=== PATIENT | male | born 1960 | race Caucasian/White ===

== ENCOUNTER 2021-10-24 09:36 | Inpatient (IN) | payer MEDICAID ==
[~2021-10-24] VITALS: Ht 182.9 cm; Wt 99.0 kg
[2021-10-24] MEDS ORDERED: COMBIGAN EYE DRO5 ML OPTH (12:44)
--- NOTE | 2021-10-24 13:09 | NUR ---
admission assessment completed. Pt is alert and oriented but aggitated. states he was unable to recieve care at [facility] and [facility] before making it to the hospital. spo2 = 94% on 15L NRB mask. respirations even and unlabored. lungs sound coarse in both bases. states he has a cough and constant persistent nasal congestion. plan of care established. Pt refused wearing cardiac catheterization technologist. IV remdesivir given and PRN medication for anxiety and cough at this time (see emar). Plan of care for established. Rt now in room to set up Vapotherm.
--- NOTE | 2021-10-24 14:30 | NUR ---
PT WAS INCONTIENT OF URINE. ASSISTED WITH TAKING OFF CLOTHING AND FRED CARE. PT NOW LAYING ON RIGHT SIDE ON VAPOTHERM AT 40L/65%. SPO2 = 98%. IV REMDESIVIR FINISHED, PT NOW SALING LOCKED. CALL LIGHT WITHIN REACH. PT DENIES FURTHER NEEDS AT THIS TIME.
--- NOTE | 2021-10-24 16:00 | NUR ---
ASSESSMENT COMPLETED. IV FLUIDS INFUSING. PT DIAPHORETIC BUT AFEBRILE. GOWN AND BED LINENS CHANGED. PT REMAINS ON VAPOTHERM AT 40L/65%. CALL LIGHT WITHIN REACH. WILL CONTINUE TO MONITOR.
--- NOTE | 2021-10-24 17:44 | NUR ---
PT ATTEMPTED TO STAND AT BEDSIDE TO VOID, UNABLE TO URINATE. NOW LAYING ON LEFT SIDE. VAPOTHERM FIO2 DECREASED TO 55% AT THIS TIME. PT'S SPO2 = 93-95%. GIVEN ORANGE JUICE. CALL LIGHT WITHIN REACH. NO FURTHER NEEDS AT THIS TIME.
--- NOTE | 2021-10-24 21:15 | NUR ---
PATIENT SLEEPING SOUNDLY. RR 20, EVEN AND NON-LABORED. NASAL CANULA ONLY IN ONE NARE, 40L 55% Fi02 VAPOTHERM. TITRATED TO 30L 55%. READJUSTED NASAL CANULA. PATIENT WOKE TO VOICE AND TOUCH. VS STABLE. IV FLUIDS PER ORDER, SITE WNL. LUNG SOUNDS ARE CLEAR, DIMINISHED IN THE BASES. PATIENT REPORTS GENERAL ACHES AND PAIN, PRN TYLENOL PROVIDED. PRN FOR COUGH AND SLEEP ALSO PROVIDED. PATIENT ENCOURAGED TO TURN FROM SIDE TO SIDE, CURRENTLY RESTING ON HIS BACK. PATIENT VERBALIZED UNDERSTANDING TO CALL FOR ASSISTANCE AND WHERE THE CALL LIGHTS WERE LOCATED. ALLOWED PATIENT TO REST, LIGHTS DIMMED.
--- NOTE | 2021-10-25 00:17 | NUR ---
PATIENT LAYING AWAKE IN BED. REPORTS THAT HE HAS TRIED TO VOID AND WAS UNABLE TO. PATIENT IS SLIGHTLY HUNGRY, OFFERED MULTIPLE ITEMS. PATIENT SETTLED ON OJ AND APPLE SAUCE. PATIENT IS TOLERATING 30L 55% Fi02 WELL. LUNG SOUNDS ARE DIMINSIHED THORUGHOUT, COARSE IN THE MARLI BASES. PATIENT IS DIAPHORETIC, DENIED FEELING FEVERISH, ORAL TEMP WNL. NEW GOWN AND LINENS PROVIDED. PATIENT STOOD TO EDGE OF THE BED WHILE BED WAS CHANGED, APPEARS STEADY. TIRED EASILY. TITRATED O2 TO 100% Fi02 WHILE STANDING, BACK TO 55% Fi02 WHEN IN BED. PATIENT DENIED ANY FURTHER NEEDS. STATES HE FEELS BETTER OVER ALL. CALL LIGHT IN REACH. LIGHTS DIMMED.
--- NOTE | 2021-10-25 02:46 | NUR ---
PATIENT TOLERATING VAPOTHERM WELL, CONTINUES TO REST MOSTLY ON HIS BACK WITH HOB ELEVATED. O2 SATS 95% ON 30L 55% Fi02, TITRATED TO 30L 45% Fi02. PATIENT WOKE EASILY AND WAS REPOSITIONING IN BED. DENIES ANY NEEDS AT THIS TIME. CALL LIGHT IN REACH.
--- NOTE | 2021-10-25 05:30 | NUR ---
MORNING LABS DRAWN. PATIENT IS IN [employer] THIS MORNING. REPORTS FEELING WELL. PATIENT TOLERATING VAPOTHERM 30L 45% Fi02. TITRATED TO 6L NC, PATIENT O2 SATS 98-99% AFTER SEVERAL MINS. TITRATED TO 4L NC. PATIENT'S LUNG SOUNDS ARE DIMINISHED AND COARSE IN THE BASES. MILD COUGH. VS STABLE. PATIENT VOIDED 800 MLS CONCENTRATED URINE. ENCOURAGED PO INTAKE. PATIENT IS MORE INTERESTED IN FOOD TODAY AND PROVIDED STAFF WITH BREAKFAST ORDER. PATIENT ALSO PROVIDED WITH MORE JUICE AND APPLE SAUCE.
--- NOTE | 2021-10-25 07:19 | NUR ---
Report recieved, care of patient assumed at this time.
--- NOTE | 2021-10-25 08:10 | NUR ---
Spoke with pt, he is staying in an RV at [facility]. States he has a home in [place]. States he not allowed to stay in his RV there, so now staying. States he needs to by a generator from [employer]. Volatile when discussing covid. Very Upset as he feels he contracted Covid from [place], states he is used to his own germs and has been staying in his RV. He they states he does go to the grocery store, [employer], the [employer]. He lives on [place] and denies financial issues. States he has 0 family, but did give first name of a friend in [place], Luz Maria [phone]. PCP is in [place]. He does not have a phone. Wants scrubs when he goes home as he does not want to wear his "infected clothing" on dc. Does not believe he will have immunity post covid. Plans to return RV on dc alone when he discharges. Attempted to discuss 02 and this was upseting, will wait and discuss on discharge if he needs oxygen. Hopefully pt will be weaned off by dc. Called and asked Maritza Gary, if she will put a note on pts chart requesting scrubs when dcd.
--- NOTE | 2021-10-25 08:26 | NUR ---
ASSESSMENT COMPLETED. PT ALERT AND ORIENTED. CRACKLES NOTED IN BILATERAL LUNG BASES. DYSPNEA ON EXERTION NOTED, SPO2 = 89% ON 4 L NC. COUGH IS DRY AND NON PRODUCTIVE. PT DENIES PAIN. PLAN OF CARE ESTABLISHED FOR THIS EVENING. CALL LIGHT WITHIN REACH. WILL CONTINUE TO MONITOR.
--- NOTE | 2021-10-25 09:00 | NUR ---
1PA TO CHAIR FOR BREAKFAST. PATIENT DESATS INTO LOW 80S WITH ACTIVITY, O2 INCREASED TO 6.5 WHILE UP IN CHAIR. CALL LIGHT IN EASY REACH
--- NOTE | 2021-10-25 09:48 | NUR ---
PT UP IN CHAIR FOR BREAKFAST AND MEDICATION ADMINISTRATION. SPO2 DECREASED INTO THE LOW 80S WITH EXERTION. PT NOW BACK IN BED IN LEFT SIDE LAYING POSITION. CURRENTLY ON VAPOTHERM AT 35L/ 50%FIO2. SPO2 =89-92%. DR PHAN IN ROOM TO ASSESS PT. PLAN OF CARE FOR DAY ESTABLISHED. CALL LIGHT AND BELONGINGS WITHIN REACH. WILL CONTINUE TO MONITOR.
--- NOTE | 2021-10-25 10:06 | NUR ---
Pt states he lives alone in a 1 story home with few steps. He uses a CPAP and a cane. He provides his own care. He has a niece in [place] and a sister in [place]. They will assist, but he states he doesn't see them often. He draws SSI and a pension from his late . He does not qualify for assist through [employer]. He states most of his food is from [employer]. He does not read labels and we discussed, food from a food bank is usually prepackaged and very high in salt. He does not want to speak with commercial title examiner for education. Phone numbers for contacts are incorrect and I will notify admitting with new phone number s. He also states he is on low income program for utilities. I offered to help him check if he qualifies for OHP and he states he did this a few months ago and he make to much money. Plans on dc to home when discharged.
--- NOTE | 2021-10-25 10:52 | NUR ---
PT RESTING ON LEFT SIDE ON VAPOTHERM, SPO2 =93%, DENIES NEEDS AT THIS TIME. WILL CONTINUE TO MONITOR.
--- NOTE | 2021-10-25 11:59 | NUR ---
ASSESSMENT COMPLETED. PT NOW LAYING ON BACK. DENIES PAIN AND STATES COUGH HAS IMPROVED SINCE PRN MEDICATION WAS GIVEN. PT ATTEMPTED TO VOID, ONLY ABLE TO VOID 50 CC AT THIS TIME. FLUIDS ENCOURAGED, LUNCH ORDERED/ CALL LIGHT WITHIN REACH. WILL CONTINUE TO MONITOR.
--- NOTE | 2021-10-25 14:00 | NUR ---
PT USED URINAL WHILE IN BED. DISCUSSED CHANGING POSITIONS. PTS SPO2 = 89-92 ON VAPOTHERM AT CURRENT SETTINGS. PT AGREEABLE TO LAYING ON SIDE. CALL LIGHT WITHIN REACH. WILL CONTINUE TO MONITOR.
--- NOTE | 2021-10-25 14:00 | NUR ---
PATIENT RECIEVED PHONE CALL, THIS CARDIAC NURSE IN TO ASSIST HIM WITH ANSWERING. 600ML OF URINE IN URINAL. PATIENT ALSO SET UP FOR BRUSHING HIS TEETH AFTER LUNCH.
--- NOTE | 2021-10-25 14:04 | NUR ---
DUE TO PRECAUTIONS, UNABLE TO VISIT PT IN PERSON. WILL FOLLOW NEEDED
--- NOTE | 2021-10-25 15:40 | NUR ---
ASSESSMENT COMPLETED. PT STATES "I FEEL KIND OF SWEATY BUT I DON'T WANT TO TAKE ANY MEDICINE. I WILL BE FINE" PT IS AFEBRILE BUT IS MILDY DIAPORHETIC. ASSESSMENT OTHERWISE UNCHANGED. CALL LIGHT WITHIN REACH. WILL CONTINUE TO MONITOR.
--- NOTE | 2021-10-25 19:30 | NUR ---
SHIFT REPORT RECEIVED. PATIENT RESTING IN BED. VAPOTHERM IN PLACE, O2 SATS 93%. CALL LIGHT IN REACH.
--- NOTE | 2021-10-25 21:00 | NUR ---
PATIENT IS NOT WILLING TO WEAR VAPOTHERM AT THIS TIME. REPORTED PAIN AND ANXIETY FROM THE LOUD NOISE TO RT WHICH WAS THEN PASSED ONTO THIS RN. DISCUSSED O2 THERAOY WITH PATIENT WHO VERBALIZED UNDERSTANDING BUT IS ADDAMENT ABOUT TAKING A BREAK FROM VAPOTHERM. PATIENT PLACED ON 15L HIGH FLOW NC AND THEN 15L NON-REBREATHER TO RECOVER FROM HAVING O2 OFF FOR 2-3MINS AND EXCESSIVE TALKING. ENCOURAGED PATIENT TO TAKE IT EASY AND RECOVER. PATIENT ABLE TO RECOVER FULLY AFTER ABOUT 10 MINS. LUNG SOUNDS ARE CLEAR IN THE UPPERS, FINE CRACKLES IN MARLI BASES. PATIENT HAS DRY NON-PRODUCTIVE COUGH. DENIED PAIN. ABD IS MILDLY DISTENDED, PATIENT REPORTS FEELING HE MIGHT NEED TO HAVE A BM TONIGHT AT SOME POINT. URNAL EMPTIED, URINE IS DARK LY IN COLOR. VS STABLE. IV SITE FLUSHED, WNL. DISCUSSED PRONING WITH PATIENT, WHO REPORTS HE HAS BEEN DOING THAT REGULARLY AND HIS HIPS HURT WHILE HE IS ON HIS SIDE BUT IS AGREEABLE TO IT AFTER A BREAK ON HIS BACK FOR A WHILE.
--- NOTE | 2021-10-25 21:30 | NUR ---
PATIENT'S O2 SATS 93% WITH NON-REBREATHER AND HIGH FLOW NC AT 15L. NON-REBREATHER REMOVED. RR 22. PATIENT'S O2 SATS 89-91%. ENOCURAGED PATIENT TO PRONE AND REST.
--- NOTE | 2021-10-26 00:15 | NUR ---
PATIENT APPEARS TO BE SLEEPING WITH HOB SLIGHTLY ELEVATED AND ON HIS BACK. RR 18. O2 SAT 92% ON 15L HIGH FLOW.
--- NOTE | 2021-10-26 05:30 | NUR ---
LAB IN FOR MORNING DRAW. PATIENT TOLERATING HIGH FLOW NC AT 15L. DENIES ANY NEEDS. CALL LIGHT IN REACH.
--- NOTE | 2021-10-26 07:50 | NUR ---
PATIENT HAD LRG AMOUNT OF URINE OUTPUT MIXED WITH STOOL IN BSC. PATIENT SELF TRANSFERRED HIMSELF TO BSC AND CALLED FOR ASSISTANCE WHEN RETURNED TO BED. NC OUT OF NOSTRILS, O2 SATS IN MID 70S. PATIENT NOW ONE 15L HF AND NON- REBREATHER 15L. RECOVERED WELL HOWEVER DESATS WHEN SPEAKING. ENCOURAGED TO NOT SPEAK AND FOCUS ON BREATHING. BREAKFAST ORDERED. CALL LIGHT CLIPPED TO BED SHEET AND IN EASY REACH.
--- NOTE | 2021-10-26 08:00 | NUR ---
Spoke with RN for update. Pt required high flow 02 during the night. NO plan for dc today.
--- NOTE | 2021-10-26 08:03 | NUR ---
ASSESSMENT COMPLETED. PT GOT UP UNASSISTED, TOOK OFF OXYGEN AND AMUBLATED TO THE BATHROOM TO HAVE A BOWEL MOVEMENT. WHEN BACK IN BED OXYGEN SATURATIONS IN THE LOW 80S. NOW ON NON REBREATHER MASK AT 15L/ HIGH FLOW NASAL CANNULA AT 15l, LAYING ON RIGHT SIDE. SPO2 INCREASED UP TO THE MID 90S AT THIS TIME. PT ANXIOUS, GIVEN PRN VISITRAL. PLAN OF CARE FOR DAY ESTABLISHED, CALL LIGHT WITHIN REACH. WILL CONTINUE TO MONITOR.
--- NOTE | 2021-10-26 08:37 | NUR ---
1PA TO CHAIR FOR BREAKFAST. 15LHF/NC IN PLACE. SATS MID-HIGH 80S HWILE EATING. PATIENT ENCOURAGED TO SPIT OUT PHLEM HE COUGHS IT UP AND EAT SLOWLY. CALL LIGHT IN REACH, LINENS CHANGED. NO OTHER NEEDS AT THIS TIME
--- NOTE | 2021-10-26 09:04 | NUR ---
REMDESIVIR INFUSING. PLAN ESTABLISHED TO ASSIST PATIENT WITH PRONING AFTER INFUSION IS COMPLETE.
--- NOTE | 2021-10-26 10:02 | NUR ---
PT NOW LAYING IN PRONE POSITION ON 15 L ON HIGH FLOW NASAL CANNULA. SPO2 =96%. CALL LIGHT WITHIN REACH. WILL CONTINUE TO MONITOR.
--- NOTE | 2021-10-26 11:23 | NUR ---
ASSESSMENT COMPLETED AT THIS TIME. PT REMAINS ON 15 L ON HIGH FLOW NC, SPO2 89-92%. DENIES PAIN OR DISCOMFORT. PT UP IN CHAIR FOR LUNCH, CALL LIGHT WITHIN REACH. WILL CONTINUE TO MONITOR.
--- NOTE | 2021-10-26 13:00 | NUR ---
PT VOIDED 450 MLS OF LY COLORED URINE. NOW BACK IN BED. SPO2 = 93%. CALL LIGHT WITHN REACH. DENIES FURTHER NEEDS AT THIS TIME.
--- NOTE | 2021-10-26 16:51 | NUR ---
ASSESSMENT REMAINS UNCHANGED. PT LAYING IN BED ON BACK WATCHING TELEVISION. PT UNWILLING TO PRONE OR SIDE LAY AT THIS TIME STATING "i WAS LAYING ON MY SIDE WHEN YOU WERE NOT PAYING ATTENTION" CALL LIGHT AND PERSONAL BELONGINGS WITHIN REACH. NO FUTHER NEEDS AT THIS TIME.
--- NOTE | 2021-10-26 17:46 | NUR ---
PT ATE MOST OF DINNER. NOW LAYING IN BED ON LEFT SIDE, CALL LIGHT WITHIN CARLITOS. DENIES FURTHER NEEDS AT THIS TIME.
--- NOTE | 2021-10-26 19:48 | NUR ---
PT IS ALERT AND ORIENTED X4. OXYGEN SATS DECREASED TO 85% ON 15L HFNC WHILE TALKING. DISCUSSED THE IMPORTANCE OF PRONE POSITION TO IMPROVE RESPIRATORY STATUS. PT VERBALIZES UNDERSTANDING AND ADAMANTLY DECLINES TO PRONE BUT STATES HE WILL LAY ON HIS SIDES. PT STATES THIS IS BECAUSE OF A HERNIA THAT RESTRICTS HIS ABILITY TO PRONE. RN OFFERED ASSISTANCE WITH PILLOW SUPPORT TO ALLEVIATE ABDOMINAL DISCOMFORT, AGAIN PT DECLINES PRONING AND STATE HE WILL "TRY TOMORROW". PRN TESSALON PEARLS AND ROBITUSSIN ADMINISTERED. WILL CONTINUE TO ENCOURAGE PRONING.
--- NOTE | 2021-10-26 22:12 | NUR ---
PT O2 SATS DECREASED TO 75%. PT FOUND TO HAVE TAKEN HIMSELF TO BATHROOM AND STATES THAT HE REMOVED OXYGYN. PT STATES HE DID NOT WANT TO USE COMMODE AND DID NOT WANT TO WAIT FOR HELP. PT IS VERY UPSET ABOUT POLITICAL ISSUES SURROUNDING COVID AND HIS CURRENT ILLNESS. RN ALLOWED PT TO EXPRESS HIS FRUSTRATIONS AND REINFORCED THE NEED TO NOT REMOVE OXYGEN AND USE BSC. RN EDUCATED ABOUT SEVERITY OF OXYGYN LEVELS AND THAT EVEN THOUGH HE DID NOT FEEL "BAD" HIS BODY IS NOT TOLERATING THE INCREASE IN ACTIVITY. PT DESIRES MORE PRIVACY WHEN USING BSC AND RN MADE ENVIROMENTAL CHANGES TO IMPROVE PRIVACY WITH TOILETING. PT DECLINES PRN ANXIETY MEDICATIONS AND WAS PLACED ON 15L NRB IN ADDITION TO 15L HFNC. PT REQUIRED GREATER ANTONIO 15 MINUTES TO RECOVER O2 >88%.
--- NOTE | 2021-10-27 01:30 | NUR ---
PT SLEEPING WITH O2 SATS MAINTAINED AT 85%. INSRUCTED PT TO LAY ON HIS SIDE AND O2 SATS IMPROVED TO 90-91%. WILL CONTNIUE TO ENCOURAGE FREQUENT TURNING AND PRONING.
--- NOTE | 2021-10-27 05:27 | NUR ---
PT UP TO SIDE OF BED TO VOID. O2 DOWN TO 81% AND 15L NRB PLACED IN ADDITION TO 15L HFNC. PT TAKES 5-10 MINUTES TO RECOVER AFTER EACH INCIDENT OF DESATURATION. PT EXPRESSES FRUSTRATION REGARDING OXYGEN NOISE, DECLINES EAR PLUGS. PT CONTNIUES TO DECLINE PRONE OR TO REMAIN SIDE LYING. PT DECLINES USE OF VAPOTHERM AT THIS TIME. PT HAS BEEN EDUCATED ON RISK OF HARM R/T HYPOXIA, VERBALIZES UNDERSTANDING. WILL CONTINUE TO REINFORCE EDUCATION AND INTERVENTIONS.
--- NOTE | 2021-10-27 06:47 | NUR ---
PT UP TO BSC. NOW SITTING UP IN CHAIR. CONTINUES TO REQUIRE APPROXIMATELY 10 MINUTES WITH NRB AND HFNC BOTH AT 15L TO RECOVER DESATURATION TO THE MID 70S DURING EXERTION. PT DENIES FURTHER NEEDS AT THIS TIME.
--- NOTE | 2021-10-27 07:28 | NUR ---
REPORT REC'D FROM ENVIRONMENTAL CONSERVATION OFFICER. PATIENT RESTING IN CHAIR AT THIS TIME. PT STATES HE IS DOING OKAY, AND THAT HE IS READY FOR BREAKFAST. PT WEARING NON REBREATHER ON TOP OF HIGH FLOW NASAL CANNULA. WILL ASSESS WHEN IN ROOM. WAITING FOR PATIENT'S BREAKFAST BEFORE GOING IN FOR MEDS/ASSESSMENT. SP02 IS CURRENTLY 92%, HR IN THE 70s.
--- NOTE | 2021-10-27 09:00 | NUR ---
IN PATIENT'S ROOM FOR ASSESSMENT AND LACQUER PIN PRESS OPERATOR. PT ALSO BROUGHT HIS BREAKFAST. LENGHTY CONVERSATIONS WITH PATIENT REGARDING HIS DIAGNOSIS, TREATMENTS, PLAN OF CARE, PRONING, ETC. PATIENT EXPRESSING FRUSTRATIONS OVER ENTIRE DIAGNOSIS, HOSPITALZATION, LACK OF CONTROL OVER THINGS, ETC. PATIENT APPRECIATIVE AND APOLOGETIC OF HIS BEHAVIORS, AND STATES HE APPRECIATES US HELPING HIM. PATIENT TIRED, WANTING TO GET BACK TO BED TO REST. DISCUSSED DIFFERENT METHODS OF PRONING. PATIENT TO BE GIVEN A BEDBATH ONCE BACK IN BED. REMDESEVIR INFUSING AT THIS TIME. PT TO BE SALINE LOCKED AFTER THAT. CONTINUE TO MONITOR.
--- NOTE | 2021-10-27 09:34 | NUR ---
PATIENT GIVEN BED BATH AND SHAMPOO CAP. PT NOW RESTING ON LEFT SIDE AND SP02 IS 91% ON 15 L HFNC. PATIENT STATES HE DIDN'T REST VERY WELL LAST EVENING AND IS WANTING TO REST NOW. PT ATE 80% OF HIS BREAKFAST. CALL LIGHT WITHIN REACH.
--- NOTE | 2021-10-27 10:05 | NUR ---
DR. SWANSON IN TO SEE PATIENT. PATIENT HAS BEEN RESTING ON LEFT SIDE AND SP02 HAS BEEN 91-97% ON 15L HFNC. WILL CONTINUE TO MONITOR.
--- NOTE | 2021-10-27 11:57 | NUR ---
PATIENT SITTING UPRIGHT IN BED FOR LUNCH. PATIENT REMAINS ON 15 L HFNC WITH NRB OVERTOP AT TIMES. PATIENT EATS LUNCH. PATIENT STATES HE IS BREATHING OVERALL SLIGHTLY BETTER THAN HE WAS WHEN HE CAME IN. DISCUSSED WITH PATIENT POTENTIALLY USING IPPB TO WHICH HE WAS OPEN TO. PT HAD BEEN RESTING WELL SINCE BREAKFAST. DENIES FURTHER NEEDS, BUT ASKS THIS RN TO PRAY FOR HIM.
--- NOTE | 2021-10-27 12:23 | NUR ---
REPORT RECIEVED FROM CCU BEA CAREY. CARE OF PATIENT ASSUMED AT THIS TIME. PT IN BED WATCHING TELEVISION. ON HIGH FLOW NC AT 15 L WITH NRB MASK ON THE TOP. SPO2 = 94%. CALL LIGHT WITHIN REACH. WILL CONTINUE TO MONITOR.
--- NOTE | 2021-10-27 14:14 | NUR ---
PT'S OXYGEN SATURAIOTNS AT 87%, PT LAYING FLAT ON BACK. REFUSES AT THIS TIME TO TURN LELE SIDE. CALL LIGHT WITHIN REACH. WILL CONTINUE TO MONITOR.
--- NOTE | 2021-10-27 16:21 | NUR ---
assessment completed. pt's respiratory rate is in the high 20's and pt is using accessory muscles to breath. pt denies feeling short of breath. spo2 =87% on high flow nasal cannula and nrb mask. Encouraged pt to prone and side lie. PT unwilling at this time. call light and personal belongings within reach. Will continue to educate pt on the importance of proning for respiratory care.
--- NOTE | 2021-10-27 17:20 | EKG ---
[facility] [address] [place], [place] [address] Signed Normal sinus rhythm Normal ECG No previous ECGs available Confirmed by NAOMY SWANSON DO ([id number]) on 10/27/2021 5:20:46 PM Electronically Signed By: NAOMY SWANSON DO 10/27/21 1720 PATIENT NAME: SHYANA MCCAULEY Electrocardiogram DATE OF : 56 PHYSICIAN: NAOMY SWANSON DO REPORT #: [id number] REPORT IS CONFIDENTIAL AND NOT TO BE RELEASED WITHOUT AUTHORIZATION
--- NOTE | 2021-10-27 23:11 | NUR ---
PT TO SIDE OF BED TO VOID. O2 SATS DECREASED TO LOW 80s AND PT 15L NRB WAS ADDED TO 15L HFNC. SATS REMAINED AT 86% AND PT WAS INSTRUCTED TO LAY ON HIS SIDE. O2 STS NOW MAINTAINING AT 90%. WILL CONTINUE TO MONITOR.
--- NOTE | 2021-10-28 04:34 | NUR ---
PT UP TO BSC INDEPENDENTLY. O2 SATS DECREASED TO MID 70S ON 15L HFNC. 15L NRB PLACED. RECOVERY TIME AFTER ACTIVITY IS IMPROVED TONIGHT FROM LAST NIGHT, O2 SATS INCREASED TO 90% IN LESS THAN 5 MINUTES.
--- NOTE | 2021-10-28 07:00 | NUR ---
PATIENT REPORT RECEIVED FROM BEA BRIDGES. PATIENT RESTING IN BED. PATIENT HAS HIGH FLOW OXYGEN ON AND NRB AT 15 LITERS. CALL LIGHT WITHIN REACH NO FUTHER NEEDS.
--- NOTE | 2021-10-28 08:00 | NUR ---
PATIENT ASSESSMENT COMPLETE. MEDICATIONS GIVEN ORDERED. PATIENT WORK OF BREATHING APPEARS TO BE LABORED. PATIENT EDUCATED ON THE IMPORTANCE OF SIDE LYING AND PRONING. PATIENT STATES, "I WILL DO WHAT I WANT" PATIENT IS ON 15 LITERS OF OXYGEN ON THE NRB AND HIGH FLOW OXYGEN. LUNGS ARE CLEAR IN THE UPPER LOBES AND DIMINISHED WITH FINE CRACKLES IN THE LOWER LOBES. HEART RATE IS 60-80 BPM. AFEBRILE. CMST INTACT. PLAN OF CARE UPDATED. CALL LIGHT WITHIN REACH NO FUTHER NEEDS.
--- NOTE | 2021-10-28 09:44 | NUR ---
PATIENT TO SIDE OF BED TO VOID. PATIENT SATURATIONS DECREASED TO 82%. PATIENT TAKING LONGER TO RECOVER. NRB AND HIGH FLOW AT 15 LITERS. PATIENT BACK TO BED AND OXYGEN SATURATIONS BETWEEN 87-90%. WORK OF BREATHING LABORED. CALL LIGHT WITHIN REACH NO FUTHER NEEDS.
--- NOTE | 2021-10-28 11:21 | NUR ---
PATIENT OXYGEN SATURATIONS ARE MAINTAINING 84-87%. EDUCATED PATIENT ON SIDE LYING AND PRONING. PATIENT STATES "I DO NOT WANT TO LAY ON MY SIDE BECAUSE WHEN I LAY ON MY SIDE IT WILL BE LUNCHTIME AND I WILL HAVE TO MOVE AGAIN." PATIENT ON 15 LITERS NRB AND HIGH FLOW.
--- NOTE | 2021-10-28 12:00 | NUR ---
PATIENT ASSESSMENT COMPLETE. PATIENT SAID THAT RT TREATMENT HELPED. LUNGS ARE CLEAR IN THE UPPER LOBES AND DIMINISHED IN THE BASES. OXYGEN SATURATIONS AND RR HAVE IMPROVED AFTER TREATMENT. HEART RATE 60-70 BPM. AFEBRILE. URINE IS YELLOW AND CLEAR. NO BM. BOWEL TONES ACTIVE. CALL LIGHT WITHIN REACH NO FUTHER NEEDS.
--- NOTE | 2021-10-28 14:00 | NUR ---
PATIENT RESTING IN BED. PATIENT VOIDED. PATIENT HAS BEEN MAINTAING OXYGEN SATURATIONS ABOVE 95% AFTER RT TREATMENT. BREATHING IS EQUAL AND UNLABORED. HIGHFLOW OXYGEN AND NRB AT 15 LITERS VIA NASAL CANUALA. CALL LIGHT WITHIN REACH NO FUTHER NEEDS.
--- NOTE | 2021-10-28 16:00 | NUR ---
PATIENT ASSESSMENT COMPLETE. ALERT AND ORIENTED X4. LUNG SOUNDS CLEAR IN THE UPPER LOBES AND DIMINISHED IN THE BASES. OXYGEN SATURATIONS AND RR ARE WNL. 90-95%. HEART RATE 90-80 BPM. URINE IS YELLOW AND CLEAR. NO BM. BOWEL TONES ACTIVE. PATIENT DENIES ANY PAIN. PLAN OF CARE UPDATED. CALL LIGHT WITHIN REACH NO FUTHER NEEDS.
--- NOTE | 2021-10-28 19:38 | NUR ---
PT'S O2 SATS DOWN TO 80-83% ON 15L NRB AND 15L HFNC 15 MINUTES AFTER USING BSC. PT IS TACH[place]NI[place] IN THE LOW 30S AND STATES MILD SOB. INSTRUCTED PT TO LAY ON HIS SIDE WHICH UPSET HIM AND HE EXPRESSED HIS ANGER REGARDING COVID IN GENERAL AND THAT IT IS "NOT MY FAULT I AM SICK". PT EXPRESSES FRUSTRATION AT NEED TO CONTINUALLY LAY ON HIS SIDE AND WEAR HIS OXYGEN. RN VALIDATED PT'S FEELINGS AND REINFORCED THAT DISPITE HIS ANGER AND FEELINGS HE IS SICK AND THESE INTERVENTIONS ARE NEEDED TO ASSIST TO PREVENT FUTHER DECLINE IN CONDITION AND TO IMPROVE HIS RESPIRATORY CONDITION. PT VERBALIZES UNDERSTANDING, DECLINES TO PRONE BUT IS WILLING TO LAY ON HIS SIDE. O2 SATS INCREASED TO 89% WITIN 5 MINUTES AND 95% WITHIN 20 MINUTES. WILL CONTINUE TO REINFORCE EDUCATION AND PROVIDE EMOTIONAL SUPPORT NEEDED.
--- NOTE | 2021-10-29 01:15 | NUR ---
SPO2 ALARMING, SATS RANGING 79%-85%. pt RECENTLY UP TO VOID AND IS BACK IN BED. 15L HIGH FLOW NASAL CANNULA ALREADY IN PLACE, pt EDUCATED TO TURN ON HIS SIDE, pt EXPRESSES VERBAL FRUSTRATION REGRARDING "BEEPING NOISES" AND DIFFICULTY SITUATING HIMSELF IN BED WITH HIS BLANKETS. ASSISTANCE PROVIDED, 15L NONREBREATHER MASK NOW IN PLACE IN ADDITION TO 15L HIGHFLOW NASAL CANNULA. SPO2 SLOWLY TRENDING TO NORMAL RANGE, NOW 88-89%. DIAMOND EXPERT JACOB AT RN STATION AND UPDATED. CALL LIGHT IN REACH.
--- NOTE | 2021-10-29 04:45 | NUR ---
PT MAINTAINING O2 BETWEEN 82-84%. DISCUSSED NEED FOR VAPOTHERM TREATMENT AND NEGATIVE EFFECTS OF CONTINUED LOW OXYGEN. PT DECLINES VAPOTHERM BUT IS WILLING TO LAY BACK ON HIS SIDE. PT STATES HE IS THINKING ABOUT PRONING BUT DECLINES TO AT THIS TIME. RN OFFERS TO ASSIST WITH PILLOW SUPPORT FOR COMFORT, PT AGAIN DECLINES. PT DID RETURN TO LEFT SIDE LAYING POSITION AND O2 SATS NOW MAINTAINING BEWTEEN 87-90%.
--- NOTE | 2021-10-29 07:39 | NUR ---
REPORT RECEIVED FROM BEA BRIDGES. PT REMAINS UPSET REGARDING HIS EYEDROPS WHICH ARE NOT AVAILABLE IN HOUSE AND IN HIS TRAILER BUT REFUSED TO LET SOMEONE GO GET. CALLED PHARMACY AGAIN AND [facility]INO IS LOOKING INTO IT. BREAKFAST IS ORDERED.
--- NOTE | 2021-10-29 08:00 | NUR ---
Spoke with Rn for update. Pt remains on high flow 02.
--- NOTE | 2021-10-29 08:52 | NUR ---
TEETH BRUSHED AND FACE/HANDS WASHED. WILL GIVE BEDBATH TODAY. PATIENT NOW PRONING WITH 15L NC IN PLACE, SATS 91%. CALL LIGHT IN EASY [place].
--- NOTE | 2021-10-29 10:37 | NUR ---
SPOKE WITH PT REGARDING PRONING AND SIDE LAYING. STATES HE CAN ONLY DO WHAT HE CAN. TOLD HIM WHEN HE FEELS ABLE ROLL TO SIDE AND LAY THERE FOR A WHILE. EXPLAINED THAT HE IS QUITE SICK AND NEEDS TO DO THESE THINGS. PT DOES NOT SEEM TO UNDERSTAND HE SEES HIS O2 READING IS 90 ATT.
--- NOTE | 2021-10-29 11:38 | NUR ---
ADJUSTED VAPOTHERM ON PT HE IS HAVING TROUBLE KEEPING IT IN HIS NARES. LAYING ON BACK
--- NOTE | 2021-10-29 13:10 | NUR ---
SBA FROM BED TO CHAIR FOR LUNCH. PATIENT STATES "SEE, I TOLD YOU GUYS I WOULD BE OK, GAMALIEL KEPT MY NUMBERS IN THE 90S FOR QUITE AWHILE"(REFERRING TO HIS O2 SATS) THIS REAL ESTATE OFFICE SUPERVISOR ENCOURAGED PATIENT TO CONTINUE WEARING THE O2 AND TRIED TO CALM PATIENT HE GETS EXCITED AND FRUSTRATED VERY EASILY WITH O2 TUBING, MONITORS AND CORDS CONNECTED TO HIM. PATIENT NOW UP IN CHAIR EATING LUNCH. CALL LIGHT AND PERSONAL ITEMS IN [facility]ASY REACH
--- NOTE | 2021-10-29 13:28 | NUR ---
PT UP TO CHAIR TO EAT LUNCH, CONTINUES TO WEAR VAPOTHERM. SATS 87%. ANXIOUS ABOUT EVERYTHING.
--- NOTE | 2021-10-29 14:33 | NUR ---
PT TURNED TO LEFT SIDE AND WARM BLACKETS GIVEN. PT REPORTS BEING COLD. PT YELLING AT RN AND REQUESTING PANTS, PANTS GIVEN. PT REPORTS FEELING BETTER AND EDUCATION GIVEN ON CHANGING POSITIONS IN BED. O2 SAT 93% WHEN LAYING DOWN IN BED.
--- NOTE | 2021-10-29 16:30 | NUR ---
PT IN BED ON HIS BACK WITH NON REBREATHER AND VAPOTHERM ON. SATS 92-95% PT CONFUSED ABOUT HIS OX USAGE. EXPLAINED HIS SATS ARE BETTER BECAUSE WE ARE GIVING HIM MORE OX. HE STATES HE DOESN'T THINK SO. LUNG SOUNDS REMAIN THE SAME.
--- NOTE | 2021-10-29 17:57 | NUR ---
PT CALLED AFTER HE TOOK OFF HIS VAPOTHERM. PT WAS UNDER THE MISSUNDERSTANDING THAT LEONIE MARTIN HAD TOLD HIM IF HE WORE THE VAPOTHERM FOR AWHILE HE WOULDN'T NEED TO WEAR O2 AFTER THAT. TRIED TO EXPLAIN THAT HE HAD TO WEAR HIS NASAL CANULA REGARDLESS HIS SATS WERE AT 74. HE THINKS HE IS BETTER. HE ALSO THINKS HE HAS GOTTEN SICKER SINCE HE HAS BEEN HERE AND HE DID NOT COME HERE TO GET SICKER. TRIED ONCE AGAIN TO EXPLAIN THAT WE ARE DOING EVERYTHING WE CAN TO ASSIST HIM IN GETTING BETTER. UNABLE TO GET THROUGH.
--- NOTE | 2021-10-29 19:30 | NUR ---
O2 SAT DROPPING, TO LOW 80'S pt HAS NASAL CANNULA ON AT 15L. pt REFUSED TO PLACE NON REBREATHER AT THIS TIME "I'M DOING FINE, I JUST NEED A WARM BLANKET" PROVIDED A WARM BLANKET. pt DROPPED TO LOW TO MID 70'S, AFTER MUCH DISCUSSION AND EDUCATION, pt PLACED NRB OVER NC. SATS INCREASED TO HIGH 80'S. EMPTIED YELLOW URINE FROM URINAL. pt SPEAKING IN FULL SENTENCES DENIED FEELING SOB, STATING "I'M JUST REALLY TIRED AND I NEED TO SLEEP" LIGHTS DIM FOR pt COMFORT. CALL LIGHT WITHIN REACH.
--- NOTE | 2021-10-29 21:08 | NUR ---
PT REPORTS THAT HE "FEELS BETTER". DOES FEEL MILDLY SOB. O2 SATS DOWN TO 83% WHILE TALKING. REINFORCED EDUCATION ON SYMPTOMS FELT VS. OXYGEN NEEDS AND BENEFITS OF PRONE POSITIONING. PT CONTINUES TO DECLINE TO PRONE, HOWEVER IS WILLING TO SIDE LAY. PT NEEDS FREQUENT REMINDERS TO KEEP NRB ON AND BECOMES DEFENSIVE WHEN INTERVENTION INSTRUCTIONS ARE GIVEN. EDUCATION REINFORCED REGARDING THE NEED TO PREVENT OXYGEN DESATURATION AND THE HARM R/T HYPOXIA. PT REFUSES EDUCATION AND STATES THAT HE IS DOING ALL THAT HE NEEDS TO DO, AGAIN STATING THE HE FEELS BETTER. REINFORCED EDUCATION IN MULTIPLE WAYS AND EXAMPLES. WILL CONTINUE TO REINFORCE EDUCATION AND MONITOR.
--- NOTE | 2021-10-29 22:41 | NUR ---
PT SLEEPING WITH 15L HFNC AND INTERMITTENT 15L NRB. O2 SATS 89-90% AT THIS TIME WITH PT LAYING ON BACK. WILL CONTINUE TO MONITOR.
--- NOTE | 2021-10-30 06:07 | NUR ---
PT HAS SLEPT THROUGH THE NIGHT, UP TO VOID X2. O2 SATS HAVE MAINTAINED 90-96% WHILE RESTING. PT HAS SLEPT ON ALTERNATING SIDES THROUGHOUT THE NIGHT. MINIMAL EPISODES OF DESATURATION IN THE LOW 80s, OCCURING DURING ACTIVITY. HR 65-80. WILL CONTINUE TO MONITOR.
--- NOTE | 2021-10-30 07:39 | NUR ---
REPORT RECIEVED FROM BEA BRIDGES. PT HAD A GOOD NIGHT AND EVEN LAYED ON HIS SIDE SEVERAL TIMES. SATS CURRENTLY 89 ON 15L HFNC.
--- NOTE | 2021-10-30 09:14 | NUR ---
PT LAYING ON LEFT SIDE SLEEPING.
--- NOTE | 2021-10-30 11:42 | NUR ---
PT LAYING ON BACK ON BED, REFUSING TO LAY ON SIDE "GAMALIEL ALREADY DONE THAT TODAY".
--- NOTE | 2021-10-30 12:30 | NUR ---
PT SLEEPING ON BACK IN BED. DECLINED TO LAY ON SIDE.
--- NOTE | 2021-10-30 14:00 | NUR ---
DR MAHER PT. STATES HE IS FEELING BETTER AND ORDERED LUNCH. STAYED IN BED FOR LUNCH WHICH IS NOT HIS NORM. STATES HE IS STILL PRETTY TIRED. AFEBRILE AND VS REMAIN STABLE WITH O2 SATS IN THE HIGH 80'S TO LOW 90'S
--- NOTE | 2021-10-30 17:45 | NUR ---
ORDERED PT DINNER. SITTING UP IN BED WITH HFNC ON. DENIES CONCERNS
--- NOTE | 2021-10-30 19:40 | NUR ---
PT O2 DOWN TO 81-83% ON HFNC AT 15L. INSTRUCTED PT TO PLACE NRB BACK ON. O2 SATS NOW 89-92%. WILL CONTINUE TO MONITOR.
--- NOTE | 2021-10-31 01:35 | NUR ---
PT SLEEPING AND MAINTAINING 02 SATS AT 88-92% WITH 15L HFNC AND 15LNRB. CURRENTLY LAYING SUPINE, BUT SIDE LAYS INDEPENDENTLY.
--- NOTE | 2021-10-31 05:40 | NUR ---
PT UP TO SIDE OF BED TO VOID. O2 SATS DOWN TO 77% ON 15L NRB AND 15L HFNC. INSTRUCTED PT TO LAY ON SIDE. PT CONTINUES TO DECLINE VAPOTHERM AND STATES "MAYBE LATER". PT RECOVERY TIME APPOXIMATELY 20 MINUTES. O2 NOW 88%
--- NOTE | 2021-10-31 07:42 | NUR ---
Report recieved. Care of patient assumed at this time. Pt up to bsc with supplemental o2 in place. spo2 = 70%, PUBLIC RELATIONS STUDIES DIRECTOR in rooom at this time to assist pt.
--- NOTE | 2021-10-31 08:00 | NUR ---
PATIENT UP TO BSC INDEPENDANTLY, PATIENT TOOK OXY MASK OFF FOR ACTIVITY, O2 SATS AT 70%. THIS LIFE SCIENCE RESEARCH ASSISTANT IN TO CHECK ON AND ENCOURAGE PATIENT TO SIT DOWN AND PUT OXY MASK ON. PATIENT STATED "I HAD TO POOP, AND I CAN ONLY DO ONE THING AT A TIME." O2 SATS NOW AT 68% AND PATIENT REMINDED OF THE DANGER OF SUCH LOW OXYGEN SATURATION. PATIENT STATES HE UNDERSTANDS AND AGAIN STATES" I CAN ONLY DO ONE THING AT A TIME." PATIENT NOW SITTING ON SIDE OF BED.
--- NOTE | 2021-10-31 08:00 | NUR ---
Pt. sleeping at my visit. Not awakened. Update from nurse, pt cont. with 15 L 02 and is not compliant.
--- NOTE | 2021-10-31 08:01 | NUR ---
PT UP TO BSC TO HAVE BOWEL MOVMENT. SPO2 DECREASED INTO THE HIGH 60S WITH ACTIVITY. PT NOW BACK IN BED IN LEFT SIDE LAYING POSITION WITH 15 L NRB/ 15L HIGH FLOW NASAL CANNULA IN PLACE. AFTER 10 MINUTES SPO2 = 86% MEDICATIONS ADIMINISTERED, ASSESSMENT COMPLETED. PLAN FOR PT TO STAY IN SIDE LAYING POSITION UNTIL BREAKFAST ESTABLISHED. CALL LIGHT WITHIN REACH. WILL CONTINUE TO MONITOR.
--- NOTE | 2021-10-31 08:33 | NUR ---
PT REMAINS IN SIDE LAYING POSITION ON LEFT SIDE. SPO2 NOW AT 90% ON 15 L NRB/ 15 L HIGH FLOW NASAL CANNULA. WILL CONTINUE TO MONITOR.
--- NOTE | 2021-10-31 10:35 | NUR ---
pt completed breakfast and removed vapotherm. Now proning in bed on 15 L NC. Plan of care established to stay in prone position for an hour. PT agreeable at this time. spo2 = 93%. Call light within reach. Will continue to monitor.
--- NOTE | 2021-10-31 11:07 | NUR ---
PT CONTINUE TO LAY IN PRONE POSITION ON 15 L HIGH FLOW NC. SPO2 = 93-95% CALL LIGHT WITHIN REACH. WILL CONTINUE TO MONITOR.
--- NOTE | 2021-10-31 11:39 | NUR ---
PT PRONED FOR AN HOUR, NOW SITTING UP IN BED. DISSCUSSED PLAN TO PRONE AGAIN IN THE AFTERNOON. PT AGREEABLE TO PLAN. ASSESSMENT UNCHANGED. LUNCH ORDERED. CALL LIGHT WITHIN REACH. WILL CONTINUE TO MONITOR.
--- NOTE | 2021-10-31 13:32 | NUR ---
PATIENT SITTING UP IN BED EATING LUNCH. VAPOTHERM IN PLACE. FRESH ICE WATER PROVIDED AND URINAL EMPTIED. CALL LIGHT IN EASY REACH
--- NOTE | 2021-10-31 14:27 | NUR ---
PT ON PRECAUTIONS WILL FOLLOW
--- NOTE | 2021-10-31 14:30 | NUR ---
PATIENT AWAKE IN BED, BED BATH COMPLETE, WHILE PATIENT IS STANDING AT SIDE OF BED. LINENS CHANGED AGAIN. PATIENT VERY APPRECIATIVE OF CARE HE'S RECEIVING FROM STAFF. PATIENT NOW SITTING IN BED, CALL LIGHT IN EASY REACH, FRESH ICE WATER PROVIDED.
--- NOTE | 2021-10-31 17:34 | NUR ---
PT OFF OF VAPOTHERM AND ON 15 L HIGH FLOW NC TO EAT. ASSISTED WITH POSITIONING. CALL LIGHT WITHIN REACH, DENIES FURTHER NEEDS AT THIS TIME.
--- NOTE | 2021-10-31 20:00 | NUR ---
PATIENT ASSESSMENT COMPLETE. MEDICATIONS GIVEN ORDERED. PATIENT IS ALERT AND ORIENTED X4. LUNG SOUNDS DIMINISHED. PATIENT REFUSED TO WEAR VAPOTHERM. EDUCATED ON THE BENEFITS OF WEARING IT. PATIENT ON 15 LITERS HIGH FLOW AND NRB. OXYGEN SATURATIONS ARE 88-92%. BREATHING IS EQUAL AND UNLABORED. HEART SOUNDS ARE WNL AND HEART RATE IS 60-80 BPM. URINE IS YELLOW AND CONCENTRATED. BM TODAY. BOWEL TONES ACTIVE. SKIN IS GROSSLY INTACT. CMST INTACT. PLAN OF CARE UPDATED. NO QUESTIONS AT THIS TIME. CALL LIGHT WITHIN REACH NO FUTHER NEEDS.
--- NOTE | 2021-10-31 22:00 | NUR ---
PATIENT RESTING IN BED. 15 LITER HIGH FLOW OXYGEN AND NRB. BREATHING EQUAL AND UNLABORED. OXYGEN SATURATIONS WNL. CALL LIGHT WITHIN REACH NO FUTHER NEEDS.
--- NOTE | 2021-11-01 00:02 | NUR ---
PATIENT ASSESSMENT COMPLETE. PATIENT RESTING IN BED. LUNG SOUND DIMINISHED THROUGHOUT. PATIENT WEARING NRB AND HIGH FLOW AT 15 LITERS. EDUCATED ON THE IMPORTANCE OF PRONING AND SIDE LYING. OXYGEN SATURATIONS BETWEEN 85-92%. RR WNL. HEART RATE 60-80 BPM. AFEBRILE. URINE YELLOW AND CONCENTRATED. BOWEL TONES ACTIVE. NO BM. NO QUESTIONS AT THIS TIME. CALL LIGHT WITHIN REACH NO FUTHER NEEDS.
--- NOTE | 2021-11-01 02:29 | NUR ---
PATIENT UP TO THE COMMODE WITHOUT CALLING FOR ASSISTANCE. PATIENT DE SAT DOWN TO 70%. EDUCATED ON PATIENT ABOUT USING NRB WHILE UP. PATIENT SAID "I WILL USE IT WHEN I WANT TOO." ASSISTED BACK TO BED AND APPLIED NRB. PATIENT TOOK LONG TIME TO RECOVER. PATIENT SATURATIONS BACK TO 88-92%. CALL LIGHT WITHIN REACH NO FUTHER NEEDS.
--- NOTE | 2021-11-01 04:00 | NUR ---
PATIENT ASLEEP AND SATURATIONS ARE BETWEEN 90-95%. BREATHING IS EQUAL AND UNLABORED. HIGH FLOW OXYGEN AND NRB AT 15 LITERS. CALL LIGHT WITHIN REACH NO FUTHER NEEDS.
--- NOTE | 2021-11-01 05:00 | NUR ---
PATIENT ASSESSMENT COMPLETE. PATIENT IS RESTING IN BED. HIGH FLOW AND NRB AT 15 LITERS. OXYGEN SATURATIONS AT 88-94%. RR WNL. HEART SOUNDS WNL. PATIENT DENIES SHORTNESS OF BREATH AND PAIN. CMST INTACT. AFEBRILE. URINE IS YELLOW AND CONCENTRATED. NO BM. BOWEL TONES ACTIVE. NO QUESTIONS AT THIS TIME. CALL LIGHT WITHIN REACH NO FUTHER NEEDS.
--- NOTE | 2021-11-01 08:00 | NUR ---
PT THIS MORNING IS RELUCTANT TO PRONE ON HIS ABDOMEN. PT WAS SWITCHED TO VAPOTHERM 40L/ 100% DUE TO LOW O2 SATS IN THE LOWER 80'S. O2 SATS CURRENTLY IN THE MID 80'S ON VAPOTHERM. ALL LOBES ARE CLEAR BUT DIMINISHED. PT DENIES SOB EVEN THOUGH HIS RR IS AROUND 30. ABD SOUNDS PRESENT, NO PERIPH. EDEMA NOTED, RADIAL AND PEDIS PULSES +2. MAY NEED TO PUT PT ON C-PAP.
--- NOTE | 2021-11-01 09:00 | NUR ---
PT PRONED ON HIS ABDOMEN FOR APPROX. 30 MINUTES. PT AT THIS TIME ON HIS RIGHT SIDE ONCE MORE. O2 SATS DOWN TO MID 80'S. WILL CONTINUE TO MONITOR. ASKED MD GARCIA IF WE COULD USE C-PAP IF PT IS WILLING. NO CLEAR ANSWER RECEIVED.
--- NOTE | 2021-11-01 09:37 | NUR ---
PT ATE BREAKFAST IN CHAIR ON VAPOTHERM. PT NOW BACK IN BED ON HIS LEFT SIDE. O2 SATS AT THIS TIME 90% ON 40L/100% VAPOTHERM. LINNEN WERE CHANGED AND AM ORAL CARE WAS DONE. PT ALSO GOT A BED BATH AND HAS NEW CLOTHIN ON.
--- NOTE | 2021-11-01 10:32 | NUR ---
PT NOW ON HIS RIGHT SIDE ONCE MORE. O2 SATS 94% ON VAPOTHERM 40L/100%.
--- NOTE | 2021-11-01 12:00 | NUR ---
V/S WDL, PT DENIES PAIN AND SOB. UPPER LOBES CLEAR, LOWER LOBES HAVE NOW CRACKLES PRESENT. NO PERIPH. EDEMA NOTED, RADIAL AND PEDIS PULSES WDL, PT IS TURNING FROM SIDE TO SIDE MOSTLY. VAPTHERM SETTINGS UNCHANGED. BESIDES THE CRACKLES IN THE LOWER LOBES, NO NEW CONCERNS WERE NOTED AT THIS TIME.
--- NOTE | 2021-11-01 13:21 | NUR ---
VAPOTHERM SETTINGS WERE CHANGED TO 30L/70% AND PT O2 SATS ARE 94% AT THIS TIME. PT IS SITTING UP IN BED WATCHING TV. NO NEW CONCERNS HAVE BEEN NOTED.
--- NOTE | 2021-11-01 15:20 | NUR ---
PT IS RESTING ON HIS RIGHT SIDE. VAPOTHERM SETTINGS AT 30L/70%. NO NEW CONCERNS NOTED AT THIS TIME.
--- NOTE | 2021-11-01 15:56 | NUR ---
PT IS LAYING ON HIS LEFT SIDE AT THIS TIME. LLL HAS CRACKLES PRESENT, ALL OTHER LOBES ARE CLEAR, OVERALL NO NEW CONCERNS WERE NOTED WITH THRID SHIFT ASSESSMENT. URINE OUTPUT IS WDL, V/S ARE WDL, PT DENIES ANY PAIN AND/OR SOB OR OTHER CONCERNS.
--- NOTE | 2021-11-01 17:46 | NUR ---
No plan for dc today. Cont on 30L high flow.
--- NOTE | 2021-11-01 18:00 | NUR ---
PT ATE DINNER. PT WAS SWITCHED OVER TO 15L O2 HIGH FLOW NC AND 15L O2 NON-REBREATHER AND NOW IS ON HIS LEFT SIDE. O2 SATS 94% AT THIS TIME.
--- NOTE | 2021-11-01 20:45 | NUR ---
SHIFT REPORT RECEIVED FROM BEA BENEDICT. PT SLEEPING, WOKE EASILY TO TOUCH. PT ORIENTED, DENIES PAIN. LUNGS CLEAR IN UPPERS, DIM IN BASES, ON 15L HFNC WITH 15L NRB ON TOP, DENIES SOB AT REST, PRN COUGH MEDS GIVEN PER REQUEST. HR REGULAR, RATE IN 70-80'S, DENIES CHEST PAIN. BOWEL TONES ACTIVE, DENIES NAUSEA. SKIN GROSSLY INTACT WITHOUT EDEMA. IV INTACT, PATENT, AND SALINE LOCKED. DISCUSSED PRONING/SIDE LYING WITH PT WHO STATES UNDERSTANDING. PT DENIES FURTHER REQUESTS AT THIS TIME, CALL LIGHT WITHIN REACH.
--- NOTE | 2021-11-01 23:08 | NUR ---
PT APPEARS TO BE SLEEPING, NO APPARENT DISTRESS. RESPIRATIONS EVEN AND UNLABORED. CONTINUES TO WEAR 15L HFNC WITH 15L NRB. SPO2 91%.
--- NOTE | 2021-11-02 00:32 | NUR ---
PT CONTINUES TO SLEEP, 15L HFNC AND 15L NRB IN PLACE. RESPIRATIONS EVEN AND UNLABORED, NO APPARENT DISTRESS. URINAL EMPTIED OF 300ML LY URINE. WILL ALLOW FOR REST AT THIS TIME AND CONTINUE TO MONITOR.
--- NOTE | 2021-11-02 01:55 | NUR ---
PT CONTINUES TO SLEEP, NO APPARENT DISTRESS. RESPIRATIONS EVEN AND UNLABORED. CURRENTLY ONLY WEARING 15L HFNC (NRB WITHIN REACH) AND SPO2 IS 91%.
--- NOTE | 2021-11-02 04:26 | NUR ---
PT SLEEPING ON LEFT SIDE, 15L HFNC IN PLACE, SPO2 94%. RESPIRATIONS EVEN AND UNLABORED, NO APPARENT DISTRESS. WILL CONTINUE TO ALLOW FOR REST AND MONITOR.
--- NOTE | 2021-11-02 06:29 | NUR ---
ASSESSMENT COMPLETED. PT SLEEPING BUT WOKE EASILY. DENIES COMPLAINTS AT THIS TIME. CURRENTLY WEARING 15L HFNC WITHOUT NRB, SPO2 94%. PT LAYING ON LEFT SIDE, FINE CRACKLES NOTED ON DEPENDENT SIDE, OTHERWISE LUNGS SOUND CLEAR. NO OTHER CHANGES FROM PREVIOUS ASSESSMENT. VITAL SIGNS STABLE.
--- NOTE | 2021-11-02 07:24 | NUR ---
PATIENT UP TO [facility] [place]. PATIENT'S O2 SATS IN 70'S AND HR 180-190. PATIENT APPEARS PALE AND SOB. PATIENT REFUSED INTERVENTIONS UNTIL HE HAS FINISHED HAVING BM AND CLEANING HIMSELF. PATIENT HAD 15L HIGH FLOW O2 IN PLACE. WHEN PATIENT RETURNED TO BED VAPOTHERM AND 15 NON-REBREATHER APPLIED. VS DONE. PATIENT RECOVERED AFTER SEVERAL MINS OF REST. PATIENT AGITATED. ALLOWED PATIENT TO REST IN PRIVATE.
--- NOTE | 2021-11-02 08:00 | NUR ---
PT AWAKE IN BED. AT THIS TIME PT IS ON 40L O2 AND 100% VAPOTHERM AND THE NON-REBREATHER AT 15L O2. KING IS COARSE, ALL OTHER LOBES ARE CLEAR, PT DENIES SOB. ABD SOUNDS PRESENT, URINE OUTPUT WDL SO FAR, NO PERIPH. EDEMA NOTED. WILL CONTINUE TO MONITOR.
--- NOTE | 2021-11-02 09:00 | NUR ---
PER THE AM MD MEETING, PATIENT TO REMAIN IN CCU AT THIS TIME. NO CHANGE IN DISCHARGE PLAN AT THIS TIME.
--- NOTE | 2021-11-02 09:18 | NUR ---
PT EATING BREAKFAST. PT ON VAPOTHERM 40L/100% ONLY. HOPEFULLY WILL BE ABLE TO TITRATE DOWN AGAIN AFTER BREAKFAST.
--- NOTE | 2021-11-02 10:59 | NUR ---
PT IS LAYING ON HIS LEFT SIDE AT THIS TIME ON VAPOTHERM 40L O2 /100%. O2 SATS 88%-90%.
--- NOTE | 2021-11-02 12:30 | NUR ---
UPPER LOBES CLEAR BUT DIMINISHED, LOWER LOBES HAVE SOME CRACKLES PRESENT AND ARE DIMINISHED ALSO. PT DENIES SOB, VAPOTHER STILL ON 40L O2 AND 100%. PT IS SITTING IN CHAIR EATING LUNCH AT THIS TIME. NO NEW AND OTHER CONCERNS WERE NOTED WITH SECOND SHIFT ASSESSMENT. PT STATED THAT HE FEELS WELL. V/S WDL, URINE OUTPUT WDL.
--- NOTE | 2021-11-02 14:30 | NUR ---
PT RESTING IN BED ON HIS SIDE. NO NEW CONCERNS NOTED AT THIS TIME.
--- NOTE | 2021-11-02 15:58 | NUR ---
UPPER LOBES CLEAR, LOWER LOBES COARSE AT THIS TIME. PT DENIES SOB AND PAIN. VAPOTHERM STILL ON 40L O2 /100%. O2 SATS FROM 88%-93%. HAVE NOT BEEN ABLE TO TITRATE DOWN SO FAR TODAY. NO OTHER OR NEW CONCERNS NOTED WITH THIS ASSESSMENT.
--- NOTE | 2021-11-02 17:20 | NUR ---
PT EATING DINNER AT THIS TIME. NO NEW CONCERNS HAVE BEEN NOTED AT THIS TIME.
--- NOTE | 2021-11-02 20:40 | NUR ---
SHIFT REPORT RECEIVED FROM BEA BENEDICT. PT WEARING VAPOTHERM, HOWEVER IS REFUSING TO WEAR IT OVERNIGHT DESPITE EDUCATION TO ITS BENEFITS AND HIS CURRENT RESPIRATORY STATUS. 15L HFNC AND 15L NRB PLACED ON PT. PT IS ALERT/ORIENTED, DENIES PAIN. LUNGS CLEAR AT THIS TIME, DIM IN BASES; PRN COUGH MEDICINE GIVEN PER REQUEST. HR REGULAR, DENIES CHEST PAIN, STATES HE FEELS "ONLY MILDLY" SOB AT REST. BOWEL TONES ACTIVE, DENIES NAUSEA. SKIN GROSSLY INTACT WITHOUT EDEMA. IV INTACT AND PATENT. DISCUSSED PLAN FOR POSITIONING-PT STATES HE WILL ROTATE SIDE LYING POSITIONS TONIGHT. PT DENIES FURTHER REQUESTS, CALL LIGHT AND BELONGINGS WITHIN REACH.
--- NOTE | 2021-11-02 22:22 | NUR ---
PT SLEEPING ON LEFT SIDE, NO APPARENT DISTRESS. RESPIRATIONS EVEN AND UNLABORED. 15L HFNC AND 15L NRB IN PLACE. SPO2 95%, HR:53.
--- NOTE | 2021-11-03 00:32 | NUR ---
PT CONTINUES TO SLEEP, HAS REPOSITIONED TO SUPINE. RESPIRATIONS EVEN AND UNLABORED, REMAINS ON 15L HFNC WITH 15L NRB. NO APPARENT DISTRESS. HR: 55, SPO2:93%. WILL ALLOW FOR REST AND CONTINUE TO MONITOR.
--- NOTE | 2021-11-03 02:46 | NUR ---
PT SLEEPING, HAS 15L HFNC AND 15L NRB IN PLACE. SPO2 90%, HR 50.
--- NOTE | 2021-11-03 04:24 | NUR ---
PT CONTINUES TO SLEEP. 15L HFNC AND 15L NRB IN PLACE. RESPIRATIONS EVEN AND UNLABORED. NO APPARENT DISTRESS. WILL ALLOW FOR REST AND CONTINUE TO MONITOR.
--- NOTE | 2021-11-03 06:55 | NUR ---
PT UP TO BSC ON 15L HFNC AND 15L NRB, SPO2 DESATS TO 80% WITH ACTIVITY, HR IN 80'S. PT TOLERATED ACTIVITY FAIR, DENIES SOB. UNMEASURED LARGE VOID AND MEDIUM SIZED BROWN STOOL NOTED. PT NOW BACK IN BED, VITAL SIGNS STABLE. DENIES REQUESTS AT THIS TIME, CALL LIGHT AND BELONGINGS WITHIN REACH.
--- NOTE | 2021-11-03 07:30 | NUR ---
REPORT RECIEVED. PATIENT IS RESTFUL IN BED. NO DISTRESS NOTED.
--- NOTE | 2021-11-03 09:00 | NUR ---
IS AWAKE AND ALERT, PATIENT IS VERY TALKATIVE AND VOCAL. TALKING ABOUT HOW FRUSTRATED HE IS ABOUT HAVING COVID. EMOTIONAL SUPPORT GIVEN. ASSESSMENT DONE. VAPOTHERM APPLIED. PATIENT HAS OCC NON-PRODUCTIVE COUGH. SITTING UP IN BED FOR BREAKFAST.
--- NOTE | 2021-11-03 09:30 | NUR ---
TOOK BREAKFAST WELL.
--- NOTE | 2021-11-03 11:37 | NUR ---
AM CARE AND BED LINENS CHANGED. PATIENT SAT IN CHAIR FOR APPROX 15 MIN REMAINS ON VAPOTHERM 40 LITERS AND 100% FIO2. WITH ACTITIVY O2 SAT 84-88, PATIENT IS ABLE TO TALK IN COMPLETE SENTENCES, IS VERY TALKATIVE. ASSESSMENT DONE UPON RETURN TO BED. NO CHANGES IN ASSESSMENT.
--- NOTE | 2021-11-03 13:00 | NUR ---
TOOK LUNCH WELL. SITTING UP IN BED WATCHING TV. PATIENT STATES HE WILL PRONE LATER THIS AFTERNOON. NEEDS MUCH ENCOURAGEMENT. FACE FLUSHED.
--- NOTE | 2021-11-03 14:30 | NUR ---
DR. GARCIA HERE TO SEE PATIENT. NO FUTHER ORDERS AT THIS TIME.
--- NOTE | 2021-11-03 15:01 | NUR ---
PRONING. VAPOTHERM AT 40 L,100% FIO2 IN PLACE.
--- NOTE | 2021-11-03 15:20 | NUR ---
WITH PRONING O2 SAT UP TO 100. ENCOURAGE PATIENT TO CONTINUE TO PRONE LONG POSSIBLE.
--- NOTE | 2021-11-03 17:13 | NUR ---
NOP CHANGES, SITTING UP IN BED WITH HOB ELEVATED. REMAINS ON VAPOTHERM AT 40 L,100% FIO2.
--- NOTE | 2021-11-03 18:00 | NUR ---
TOOK DIET WELL. NO CHANGES.
--- NOTE | 2021-11-03 19:30 | NUR ---
PATIENT REPORT RECIEVED FROM BEA WADSWORTH. PATIENT IS RESTING IN BED, NRB ON AT 15 LITERS. PATIENT HAS HIGH FLOW NEXT TO BEDSIDE. OXYGEN SATURATIONS BETWEEN 90-94%. BREATHING EQUAL AND UNLABORED. CALL LIGHT WITHIN REACH NO FUTHER NEEDS.
--- NOTE | 2021-11-03 20:00 | NUR ---
PATIENT ASSESSMENT COMPLETE. MEDICATIONS GIVEN ORDERED. PATIENT IS ALERT AND ORIENTED X4. LUNG SOUNDS DIMINISHED IN THE BASES AND CLEAR IN THE UPPER LOBES. PATIENT ON 15 LITERS NRB. ENCOURAGED TO WEAR VAPOTHERM. PATIENT STATES, "I WOULD LIKE TO WEAR THIS MASK FOR NOW." OXYGEN SATURATIONS ARE 90-94%. RR AND WOB WNL. PATIENT DENIES SHORTNESS OF BREATH AND PAIN AT THIS TIME. IV IS PATENT. HEART RATE IS 70-80 BPM. CMST INTACT. PULSES FELT STRONG. URINE IS YELLOW AND CONCENTRATED. BM EARLY THIS MORNING. BOWEL TONES ACTIVE. NO QUESTIONS AT THIS TIME. CALL LIGHT WITHIN REACH NO FUTHER NEEDS.
--- NOTE | 2021-11-03 22:00 | NUR ---
PATIENT ASLEEP. NRB ON AT 15 LITERS. OXYGEN SATURATIONS ABOVE 90%. BREATHING EQUAL AND UNLABORED. CALL LIGHT WITHIN REACH NO FUTHER NEEDS.
--- NOTE | 2021-11-04 | NUR ---
PATIENT ASSESSMENT COMPLETE. PATIENT ASLEEP. PATIENT COMPLAINS OF ACHES FROM PT YESTERDAY. DOES NOT WANT TYLENOL. REPOSTIIONED IN BED. ALERT AND ORIENTED X4. LUNG SOUNDS ARE DIMINISHED IN THE BASES AND CLEAR IN THE UPPER LOBES. RR AND WOB WNL. OXYGEN SATURATIONS ARE 90-94% ON 15 LITERS ON NRB. HEART RATE IS 65-80 BPM. URINE IS YELLOW AND CONCENTRATED. NO BM. BOWEL TONES ACTIVE. NO QUESTIONS. CALL LIGHT WITHIN REACH NO FUTHER NEEDS.
--- NOTE | 2021-11-04 02:00 | NUR ---
PATIENT ASLEEP. NRB AT 15 LITERS. OXYGEN SATURATIONS ABOVE 90%. BREATHING EQUAL AND UNLABORED. CALL LIGHT WITHIN REACH NO FUTHER NEEDS.
--- NOTE | 2021-11-04 03:56 | NUR ---
PATIENT ASSESSMENT COMPLETE. PATIENT UP TO THE COMMODE. PATIENT DE SATURATED TO THE 80'S. NRB AT 15 LITERS ON. PATIENT TRANSFERED BACK TO BED. FATIGUED. ALERT AND ORIENTED X4. LUNG SOUNDS CLEAR IN THE BASES AND DIMINISHED IN THE LOWER LOBES. RR WNL. HEART RATE 70-80 BPM. AFEBRILE. URINE IS CLEAR AND YELLOW. SMALL BM. BOWEL TONES ACTIVE. PATIENT DENIES ANY PAIN AT THIS TIME. NO QUESTIONS CALL LIGHT WITHIN REACH NO FUTHER NEEDS.
--- NOTE | 2021-11-04 04:45 | NUR ---
IN ROOM WITH RT. OXYGEN TRIAL COMPLETE. PATIENT IS ON HIGH FLOW OXYGEN AT 13 LITERS. OXYGEN SATURATIONS ARE BETWEEN 90-92%. BREATHING IS EQUAL AND UNLABORED. CALL LIGHT WITHIN REACH NO FUTHER NEEDS.
--- NOTE | 2021-11-04 11:33 | NUR ---
HELPED PATIENT WITH HIS BED BATH AND SHAMPOO HIS HAIR ALSO GOT A CLEAN GOWN AND PAJAMA BOTTOMS AND SOCKS. PATIENT BRUSHED HIS TEETH AND WASHED HIS FACE AFTER BREAKFAST.
--- NOTE | 2021-11-04 15:00 | NUR ---
ASSESSMENT DONE. REFUSING TO PRONE TODAY.
--- NOTE | 2021-11-04 19:05 | NUR ---
NO CHANGES. HAS HAD GOOD DAY. REMAINS ON 13 L HIGH FLOW O2.
--- NOTE | 2021-11-04 19:20 | NUR ---
RECEIVED REPORT FROM DAY SHIFT RN. PATIENT IS RESTING IN BED WATCHING TV. PATIENT DENIES ANY NEEDS. CALL LIGHT IN REACH. PATIENT REMAINS ON 13L VIA [place].
--- NOTE | 2021-11-04 20:50 | NUR ---
PATIENT ASSESMENT COMPLETED. PATIENTS VITALS TAKEN AND RECORDED. INTAKE AND OUPUT RECORDED. PATIENT IS ON 13L VIA [place] HI FLOW. PATIENT DENIES ANY SOB. PATIENTS SCHEDULED MEDICATIONS GIVEN PER ORDER. PATIENT DENIES ANY PAIN. PATIENTS IV IS SL AND IV FLUSHES WELL. PATIENT DENIES ANY NEEDS. PATIENT ENCOURAGE TO LAY ON ONE OF HIS SIDE. PATIENT IS NOW HIGH ON HIS LEFT SIDE. PATIENTS CALL LIGHT IN REACH.
--- NOTE | 2021-11-04 21:33 | NUR ---
PATIENT IS RESTING IN BED HIGH ON HIS LEFT SIDE WITH HIS EYES CLOSED, RR 19. PATIENT IS 100% ON 13L VIA [place] HI FLOW. CALL LIGHT IN REACH.
--- NOTE | 2021-11-04 22:29 | NUR ---
PATIENT IS RESTING IN BED WITH EYES CLOSED, RR 19. PATIENT IS FLAT ON HIS BACK HOB ELEVATED. PATIENT REMAINS ON 13L VIA [place] HI FLOW.
--- NOTE | 2021-11-05 00:44 | NUR ---
PATIENT ASSESMENT COMPLETED. PATIENTS VITALS TAKEN AND RECORDED. PATIENTS URINAL EMPTIED. INTAKE AND OUPUT RECORDED. PATIENT DENIES ANY PAIN OR SOB. PATIENT REMAINS ON 13L VIA [place]. PATIENT DENIES ANY NEEDS. CALL LIGHT IN REACH.
--- NOTE | 2021-11-05 02:38 | NUR ---
PATIENT IS RESTING IN BED WITH EYES CLOSED, RR 19. PATIENT REMAINS ON 13L VIA [place]. CALL LIGHT IN REACH.
--- NOTE | 2021-11-05 04:37 | NUR ---
PATIENT IS RESTING IN BED WITH EYES CLSOED, RR 19. PATIENT IS RESTING IN HIS RIGHT SIDE. PATIENT REMAINS ON 13L VIA [place]/HI FLOW. CALL LIGHT IN REACH.
--- NOTE | 2021-11-05 05:25 | NUR ---
PATIENT ASSESMENT COMPLETED. PATIENTS VITALS TAKEN AND RECORDED. PATIENT DENIES ANY SOB. PATIENT DENIES ANY PAIN. PATIENT REMAINS ON 13L VIA [place] HI-FLOW. PATIENTS ICE WATER REFRESHED. PATIENT DENIES ANY NEEDS. CALL LIGHT IN REACH.
--- NOTE | 2021-11-05 05:51 | NUR ---
PATIENT UP TO THE BSC. PATIENT HAD BM AND VOIDED. PATIENT IS BACK IN BED RESTING. PATIENTS OXYGEN SATURATION DECREASED. PATIENT IS NOW ON 15L [place] HI-FLOW. PATIENT DENIES ANY SOB. PATIENT IS NOW RESTING IN BED ON HIS LEFT SIDE.
--- NOTE | 2021-11-05 06:21 | NUR ---
PATIENT TITRATED BACK DOWN TO 13L VIA NC HI-FLOW. PATIENT REMAINS RESTING IN BED ON HIS LEFT SIDE. CALL LIGHT IN REACH.
--- NOTE | 2021-11-05 07:30 | NUR ---
REPORT RECIEVED. PATIENT IS RESTFUL AT THIS TIME.
--- NOTE | 2021-11-05 09:00 | NUR ---
PATIENT AWAKE IN BED, NC IN PLACE. FACE AND HANDS WASHED, VITALS CHARTED. PATIENT UP IN CHAIR FOR BREAKFAST. CALL LIGHT IN REACH.
--- NOTE | 2021-11-05 10:20 | NUR ---
CONTINUES TO SIT IN CHAIR. MORNING CARES GIVE. TOLERATED WELL. REMAINS ON HIGH FLOW 02 WITH SATS 86-90.
--- NOTE | 2021-11-05 10:45 | NUR ---
BACK TO BED. ASSESSMENT DONE.
--- NOTE | 2021-11-05 11:05 | NUR ---
PRONING AT THIS TIME. ENC PATIENT TO PRONE LONG POSSIBLE.
--- NOTE | 2021-11-05 12:20 | NUR ---
SITTING UP IN BED TO EAT LUNCH. DENIES PAIN.
--- NOTE | 2021-11-05 13:30 | NUR ---
TOOK LUNCH WELL. RESTING IN BED. REMAINS ON HIGH FLOW O2 NC AT 13L.
--- NOTE | 2021-11-05 20:30 | NUR ---
SHIFT REPORT RECEIVED FROM BEA WADSWORTH. ASSESSMENT COMPLETED. PT ALERT/ORIENTED, DENIES PAIN. LUNGS CLEAR/DIM, 15L HFNC IN PLACE, PRN COUGH MEDS GIVEN PER REQUEST. HR REGULAR. BOWEL TONES ACTIVE, DENIES NAUSEA. SKIN GROSSLY INTACT WITHOUT EDEMA. IV INTACT AND PATENT. FRESH ICE WATER PROVIDED. CALL LIGHT AND BELONGINGS WITHIN REACH. PT DENIES FURTHER NEEDS AT THIS TIME. PLAN OF CARE DISCUSSED WITH PT.
--- NOTE | 2021-11-05 22:15 | NUR ---
PT APPEARS TO BE SLEEPING, NO APPARENT DISTRESS. OXYGEN IN PLACE AT 15L HFNC. VITAL SIGNS STABLE.
--- NOTE | 2021-11-06 00:23 | NUR ---
PT HAS REPOSITIONED FROM LEFT SIDE LYING TO SUPINE. 15L HFNC REMAINS IN PLACE. PT APPEARS TO BE SLEEPING, NO APPARENT DISTRESS, RESPIRATIONS EVEN AND UNLABORED.
--- NOTE | 2021-11-06 03:10 | NUR ---
PT CONTINUES TO SLEEP, REMAINS SUPINE AT THIS TIME. NO APPARENT DISTRESS. RESPIRATIONS EVEN AND UNLABORED. HR:64, SPO2:94% ON 15L HFNC.
--- NOTE | 2021-11-06 05:50 | NUR ---
PT AWAKE, ASSESSMENT COMPLETED AND UNCHANGED. URINAL EMPTIED OF 450ML YELLOW URINE. REPORT GIVEN TO BEA CANNON. PT MOVED TO MED-SURG ROOM 115 WITH ALL BELONGINGS.
--- NOTE | 2021-11-06 06:56 | NUR ---
PT TO ROOM 115 FROM CCU. ALERT AND ORIENTED. 15L/HFNC IN PLACE. SpO2 LOW 90'S. PT DENIES SOB. DENIES PAIN OR NAUSEA. INDEPENDENT TO BSC TO VOID AND HAVE SMALL BM. PT DENIES QUESTIONS OR CONCERNS AT THIS TIME. CALL LIGHT IN REACH.
--- NOTE | 2021-11-06 07:26 | NUR ---
Pt awake, watching tv, no requests, continues on Airborne isolation precautions.
--- NOTE | 2021-11-06 07:49 | NUR ---
ON 15L HIGH FLOW O2, CLEAR LUNGS, ABD AOST R SIDED ABD HERNIA NOTED. SL RFA
--- NOTE | 2021-11-06 11:20 | NUR ---
Attempted to see Juan C. He is sleeping paritally proned. Not awakened. Remains on 14 L 02. No plan for dc today.
--- NOTE | 2021-11-06 12:17 | NUR ---
Pt continues on resp isolation O2 15L high flow, no cough. more pleasant and coopertive, using urinal, uses call light. tolerating fluids well
--- NOTE | 2021-11-06 14:50 | NUR ---
ON 15L NC HIGH FLOW, CRACKLES AT BASES,DRY COUGH COOP WITH ASSESSMENTS. TALKATIVE, HAS TOLERATED LIQUIDS AND FLUIDS WELL. VOIDING QS. CONT ON RESP ISOLATION. ROBITUSSING GIVEN ON REQUESTS. CALL LIGHT AT HANDS REACH, DENIES SOB
--- NOTE | 2021-11-06 14:57 | NUR ---
COOP WITH ASSESSMENT, EYE DROP TO R EYE DONE AT THIS TIME AT HIS REQUESTS. DR PHAN IN ROOM EXAMINING PT
--- NOTE | 2021-11-06 16:55 | NUR ---
Pt continues on Airborne isolation. 15L high flow O2NC, lungs dim at bases, CPOX #[address], sats WNL 88-94%. Denies sob at this time. moist non productive cough, was medicated with Robitussin x1, effective. pleasant and coop. voiding QS, had bm this am. Tolerating diet and fluids, no emesis, no c/o pain. stated that "I am feeling a lot better than when I came in".
--- NOTE | 2021-11-06 18:57 | NUR ---
on 13L high flow O2NC. no distress at this time. uses call light, voiding QS
--- NOTE | 2021-11-06 19:50 | NUR ---
RECEIVED REPORT FROM DAY SHIFT RN. PATIENT IS RESTING IN BED WATCHING TV. PATIENT DENIES ANY NEEDS. CALL LIGHT IN REACH.
--- NOTE | 2021-11-06 21:55 | NUR ---
PATIENT ASSESMENT COMPLETED. PATIENTS VITALS TAKEN AND RECORDED. INTAKE AND OUTPUT RECORDED. PATIENTS SCHEDULED MEDICATION GIVEN PER ORDER. PATIENT GIVEN PRN COUGH MEDICATION PER ORDER. PATIENT DENIES ANY PAIN OR SOB. PATIENT REMAINS ON 13L VIA NC HI-FLOW. PAITENT DENIES ANY FURTHER NEEDS. CALL LIGHT IN REACH.
--- NOTE | 2021-11-06 23:15 | NUR ---
PATIENT IS RESTING IN BED ON HIS RIGHT SIDE. PATIENT REMAINS ON 13L VIA NC HI-FLOW. PATIENTS OXYGEN SATURATION IS 95%. CALL LIGHT IN REACH.
--- NOTE | 2021-11-07 01:11 | NUR ---
PATIENT IS RESTING IN BED WITH EYES CLOSED ON HIS LEFT SIDE, RR 17. CALL LIGHT IN REACH. OXYGEN SATURATION ON TELE CPOX 95%.
--- NOTE | 2021-11-07 03:56 | NUR ---
PATIENTS URINAL EMPTIED. PATIENT REPOSITIONED TO HIS RIGHT SIDE. PATIENT DENIES ANY SOB. PATIENT DENIES ANY NEEDS. CALL LIGHT IN REACH.
--- NOTE | 2021-11-07 05:25 | NUR ---
PATIENT IS BACK IN BED AFTER UP USING BSC. PATIENT HAD BM. PATIENT DESAT WITH ACITVITY. PATIENT ENCOURAGED TO LAY ON HIS SIDE OR PRONE. PATIENT STATED "I KNOW, I KNOW, I WILL GET THERE". PATIENT THEN REPOSITIONED SELF TO RIGHT SIDE.
--- NOTE | 2021-11-07 06:27 | NUR ---
VITALS TAKEN AND RECORDED. PATIENTS BSC EMPTIED. PATIENT WAS ABLE TO VOID AND HAVE BM. INTAKE AND OUTPUT RECORDED. PATIENT DENIES AND SOB. PATIENT REMAINS ON 13L VIA NC HI FLOW. PATIENT DENIES ANY NEEDS, CALL LIGHT IN REACH.
--- NOTE | 2021-11-07 07:54 | NUR ---
REPORT RECIEVED. PT IN BED. AIRBORN PRECAUTIONS IN PLACE. VISULIZED PT FROM DOOR. RELE [address] OXYGEN AT 95% ON 13L HIGH FLOW. CALL LIGHT IN REACH.
--- NOTE | 2021-11-07 10:33 | NUR ---
ASSESSMENT COMPLETED. PT ASSISTED UP TO CHAIR. DESATURATION TO 85% . PT ABLE TO RECOVER. NOW 92% SITTING IN CHAIR. LUNGS MOSTLY CLEAR. PT WITH BM TODAY. HEART SOUNDS REGULAR. 10L HIGH FLOW IN PLACE. PARTIAL BED BATH PROVIDED BY COACH. PT REFUSED SHOWER. GOWN CHANGED. BED LINENS CHANGED. TEETH BRUSHED. DENEIS PAIN. COUGH MEDICINE PROVIDED. CALL LIGHT IN REACH.
--- NOTE | 2021-11-07 10:40 | NUR ---
PT WITH DRY IRRITATED NASAL PASSAGE. SCANT BLOOD ON TISSUE WHEN PT BLEW HIS NOSE. NASAL SPRAY ORDERED.
--- NOTE | 2021-11-07 14:31 | NUR ---
CAME IN TO GET VS. PT NOW YELLING AT THIS BUSINESS MANAGEMENT INTERN FOR BOTHERING THEM FOR VS AND FOR HAVING THEM LAY ON THIER BACK FOR BP INSTEAD OF ON SIDE. CALL LIGHT WITHIN REACH, NO FURTHER NEEDS AT THIS TIME.
--- NOTE | 2021-11-07 15:41 | NUR ---
ROUNDED ON PT. PT IS LYING ON RIGHT SIDE. 13 L NC HIGH FLOW IN PLACE. SATURATIONS AT 95%. TITRATED TO 10L NC. SATURATIONS FROM 89-93%. PT TOLERATING WELL. REQUESTING TO BRUSH TEETH. SUPPLIES PROVIDED. ASSESSMENT COMPLETED. DENIES FURTHER NEEDS. CALL LIGHT IN REACH.
--- NOTE | 2021-11-07 17:00 | NUR ---
PT ASSISTED BY SENIOR ESTIMATOR TO CHAIR WHILE ON 10L NC. SATURATIONS DROPPED TO 85%. UNSURE IF THIS WAS ARTIFACT OR NOT PYS SATURATIOSN RECOVERED QUICKLY TO 92%. ON WALK BACK TO BED AFTER DINNER SATURATIONS MAITAINED AT 93%. PT DENIES INCRESED SOB. CALL LIGHT AND PERSONAL ITEMS WITHIN REACH.
--- NOTE | 2021-11-07 18:00 | NUR ---
PT RANTING AND RAVING ABOUT THE MEDICAL STAFF. PT IN BED. CALL LIGHT WITHIN REACH, NO FURTHER NEEDS. BLINDS CLOSED, LIGHTS TURNED OFF.
--- NOTE | 2021-11-07 18:08 | NUR ---
BEA TATE NOTIFIED OF NON-EXISTENT EVENING OUTPUT. PT CLAIMS TO ONLY EVER GO ONCE A DAY AND EARLY IN THE MORNING.
--- NOTE | 2021-11-07 19:31 | NUR ---
Continues on Respiratory Isolation, on 10L high flow, aware that we will try to get off high flow O2, stated understanding "Trevor better, I got up to the chair and walked to the bathroom" call chris at [facility]
--- NOTE | 2021-11-07 19:57 | NUR ---
on Airborne isolation. on 10L high flow O2, lungs clear bilat. sl RFA, patent. tele/cpox#[address] denies sob. uses urinal, v oiding dark yellow urine. tolerating liquids well. Saline nasal drops given, hands on demonstration done, med teaching done. cooperative, loud, talkatative. cooperative
--- NOTE | 2021-11-07 21:36 | NUR ---
TELE BATTERY CHANGED, SATS 91-95% ON 9 lITERS, HIGH FLOW. o2 DECREAED TO 7l nc, SATS 90-93%, PT AWARE, DENIES SOB. RT SHAWN NOTIFIED
--- NOTE | 2021-11-07 23:28 | NUR ---
PER TELE/CPOX SATS 88-94% ON 7L HIGH FLOW O2NC. CONT ON RESPIRATORY ISOLATION. EYES CLOSED, RESTING, LAYING ON HIS BACK. CALL LIGHT AND FLUIDS AT BEDSIDE
--- NOTE | 2021-11-08 00:34 | NUR ---
0130 - O2 DECREASED TO 5L HIGH FLOW NC, TELE CPOX 93%, RESTING, LAYING ON LEFT SIDE, NO DISTRESS
--- NOTE | 2021-11-08 00:41 | NUR ---
SATS PER TELECPOX#3 95L ON 5LHIGH FLOW NC
--- NOTE | 2021-11-08 01:13 | NUR ---
PER TELE/CPOX#3 O2 SATS 93% 5l HIGH FLOW
--- NOTE | 2021-11-08 01:55 | NUR ---
O2 HIGH FLOW 5LNC WEANED OFF TO 3L HIGH FLOW NC, SATS 94%. PT RESTING, TURNED SELF TO R SIDE, NO DISTRESS
--- NOTE | 2021-11-08 02:24 | NUR ---
SATS 95% PER CPOX/TELE, PT RESTING ON HIS BACK, HIGH FLOW NC O2 5L, NO DISTRESS, CALL LIGHT AT HANDS REACH
--- NOTE | 2021-11-08 02:49 | NUR ---
3LNC HIGH FLOW O2, PER TELE/CPOX#3 SATS 92%, PT RESTING, NO DISTRESS CONT ON RESP ISOLATION
--- NOTE | 2021-11-08 04:12 | NUR ---
resting, turns self in bed, as per tele/cpox 93% 3L high flow O2
--- NOTE | 2021-11-08 04:41 | NUR ---
pt used BSC, had a medium yellow soft bm, voided dark yellow urine, using urinal.takes O2 off when up to bsc and dessated to 78% on room air. recuperated well as soon as he placed the O2 3L high flow back on. slight sob with exertion noted. Pt encouraged to prone. stated understanding. sats 89% 3LNC high flow at this time. tolerating liquids well. no emesis. uses call light
--- NOTE | 2021-11-08 04:50 | NUR ---
PT HAS SLEPT MOST OF THIS SHIFT. WAS ON 10L O2 NC HIGH FLOW AT BEGINING OF SHIFT, HAS BEEN WEANED OFF TO 3LNC HIGH FLOW AT THIS TIME AND TOLERATING IT WELL. TAKES O2 TUBING OFF NARES WHEN UP TO BSC AND DESATED TO 78% ON ROOM AIR, RECUPERATED EASILY, PRONES SELF WHEN CUED. TELE/CPOX#[address] HAS OCEAN NASAL SPRAY AT BEDSIDE PER DRY NARES. TOLERATING LIQUIDS AND DIET WELL. EASILY. ON RESPIRATORY ISOLATION
--- NOTE | 2021-11-08 06:18 | NUR ---
Pt resting eyes closed, as per tele/cpox #3 O2 sats 95% on 3LNC high flow.
--- NOTE | 2021-11-08 08:20 | NUR ---
PT INDEPENTLY TRANSFERED SELF TO CHAIR FOR BREAKFAST. O2 DESATS TO 86% ON HIGH FLOW 3L. TRANSITIONED TO REGULAR NASAL CANNULA AT 6L. INSTRUCTED PT ON INCENTIVE SPEROMETER USE. CALL LIGHT IN REACH.
--- NOTE | 2021-11-08 09:05 | NUR ---
VERBAL ORDER TO ORDER HOME O2 QUALIFIER.
--- NOTE | 2021-11-08 09:30 | NUR ---
Received report from Sera. Patient alert oriented and cooperative with care. He is encouarged by his decreasing oxygen requirements and hopeful to discharge home today. He denies shortness of breath. ADL care provided. Patient tolerating meals. Ambulates in room indepenently
--- NOTE | 2021-11-08 11:00 | NUR ---
Notified in [address] Espinoza, pt is dischargable. Awaiting 02 qualifier and rx. 09 Spoke with pt and he does not have a phone and does not know where he will be staying. He is living in his RV and travels between [facility] and stays at various places. He is unable to tell me where he will be or give an address for the 02. We discussed [place] and if he could use pay phones there to contact [facility] if needs for his 02. He states they no longer have pay phones at the truck stop. He borrowed someones phone when he was there last. Called and spoke with Isha Ruiz from admin, the hospital will purchase a [employer] phone for her for 1 month . She will ask the CHW to do this. Spoke with Roya TORIBIO, she will get the phone and set it up for the pt. Received rx and 02 qualifier. Contacted [facility] as [facility] does not cover [place]. Updated Myrtle from [facility] to pts mobile status and gave her the new [employer] phone number. Faxed face sheet, RX, 02 Qualifier, and progress notes. They will let me know when 02 can be delivered.
[2021-11-08] MEDS ORDERED: BENZONATATE100 MG PO (12:42)
[2021-11-08] MEDS ORDERED: CODITUSSIN AC473 ML PO (12:42)
--- NOTE | 2021-11-08 14:19 | NUR ---
Took [facility] phone to pt and reminded he only has service until Dec 08, service is unlimited. Called Justin as I have not had a return call. 02 is in route. Called and spoke with Ronaldo from facilities. Asked if they would be able to assist pt if hisRV wont start after sitting in the hospital parking for 15 days of below zero weather. He states they are no longer allowed to assist pt in this way. He suggests we call [facility] for assist if needed. Notified the charge nurse.
--- NOTE | 2021-11-08 16:08 | NUR ---
Mukesh with [facility] arrives and has questions regarding pt RV. He states if pt has an older RV, the concentrator will not be able to run at 4L without overworking the generator and draining the battery. Went to pts room with Mukesh, Mukesh has a 10l tank with him. Pt immediately began yelling he won't use the tank. He wants a small tank. Mukesh explained the sm tanks would only last 1/2 hour at 4l. Attempted to discuss with pt he will need to go to a hotel or to an RV park where he can use an 02 concentrator. Pt stating he will not do this as he wants to stay in his RV. Pt refuses to use a motel or an RV Park at this time. He did arrive from [facility] when admitted. I then discussed with pt if he does not wear his 02, his o2 can drop and he will need to return to the ER. Pt states he feels fine and does not need 02. Justin again attempted to speak with the pt about the 10 L tank and pt cont. to decline. Mukesh left and I went and updated Dr. Espinoza. request I call Isha Ruiz from risk management. Called Isha and left a message. I then received a call from Dr. Espinoza, pt is getting more upset and plans on leaving [place]. I returned to pts room and attempted to get him to tank the 10 L tank with him and he refuses as he does not like this tank. Pt has dressed and lets me know he is not tired or weak and this should prove he does not need the 02. He does not believe the o2 monitor is reading correctly. Ronaldo from [employer] will assist pt and RN to his RV.
--- NOTE | 2021-11-08 16:29 | NUR ---
Patient became aggigated after learning that home oxgen would not be an option in his RV. Patient began raising his voice and stating "I want to leave. I did everything I was told to do. He removed his oxygen and refused to wear it while getting dressed. This RN attempted to deescalate the pateint with active listing and therapeutic communication. spending approximately 30 minutes with the patient. He states "I know my body, I know my risks. My mom when I was young. My father of parkinsons when I was in my 20-30's. I understand , and I will not ." asked the patient to check his oxygen saturation since he had had his oxygen off approx 5-10 minutes. He agreed and his RA sat was 74%. He stated "that machine is lying to you. I know my body. Think positive. I dont feel sick, so dont be so negative. you cannot feel what my body feels and you cannot belive what that machine is saying over what what I am telling you I feel, and I feel great." I attempted to use reflecting with the patient noting his improvement over the past 24 hours and ecouraged the patient to consider staying one more night. "His reponse was what if I get worse, then I will be stuck here forever. You just need to think postive because my body is making oxygen and I do not want to be here. The patient was agreeable to vital signs - RR 22, Bp 118/66 T 97.2 Oral. O2 sats lanre once to 94% on 15 liters, then the patient insisted on removing his oxygen to finish getting dressed and to pack his items The patients oxygen saturation dropped to 55-63%. He was agreeable to put oxygen back on allowing his monitored o2 saturation to rise to 74% then insisting to get in the wheel chair. The edge grinder, was notified by Yvonne FIGUEREDO. was notifed of patients request to leave AMA. Patient was notifed that his choice to leave AMA could result in . He was educated on signs and symptoms of hypoxia. Patient was unreceptive to education. He stated "If you would just think postive. I will not . I am a medhat determined person. I will not becuase I know my body and the machines youre using are wrong. The patient was taken to his RV by security by security and Yvonne FIGUEREDO.
--- NOTE | 2021-11-08 16:34 | NUR ---
Spoke with Isha Ruiz and updated. Pt has left AMA and would not agree to go the hotel or park. He also declined to take 02 with him. Pt is aware of the consequences of not using 02, but refuses.
--- NOTE | 2021-11-08 16:39 | NUR ---
PT. TAKEN TO VEHICLE ON 15L NC. IN A WHEELCHAIR WITH THIS NURSE AND SERCURITY. PT. TOOK OFF O2 UPON ARRIVING AT VEHICLE. PT. ABLE TO START VEHICLE. PT. STATES HE WILL STAY IN THE PARKING LOT AND CALL 911 IF HE FEELS SOB.
--- NOTE | 2021-11-09 09:33 | NUR ---
REceived call from Isak, he is upset the hospital has called him several times. Let him know his IV was not removed on discharge. He states it is not in as he cannot feel. Asked him multiple times to look at his arm as he does not want to take his coat off due to its cold. He finally removed his coat and IV site is in place. He is very upset by this and also thinks he left his booklet for her new phone. This sent him on rant and he is very upset with the hospital for doing a poor job. I apologized his IV was not removed. I let him know, his book for his phone was put into a bag. I spoke with both RNS working with him and they stated he cleaned off his table and placed everything into a bag. Spoke with power house control room operator, and she will call Negr[facility] and ask if they can go remove his IV. Updated pt who will remove his IV and he is upset by this. States he does not want anyone to know where he is. Reassured they are medical and will not divulge infor as he is covered under HIPAA. Pt then stating he has no food as all food has been frozen. Informed I will check for food near him. He does not want to [facility] as he does not feel he has enough fuel and is awaiting his SS check. Let him know I will call him back. Called and spoke with [place] at [facility]. They do not deliver to [facility], but if he comes there after 11:00 will give him lunch and a food box. Called and spoke with Ibeth TORIBIO and she let me know of the food bank at [facility] which is close to [facility]. In the meantime, pt has left 3 messages [facility] as he has not [facility] them yet. Pts new cell phone number is [phone].
--- NOTE | 2021-11-09 10:20 | NUR ---
Attempted to call pt with information with food availability. Pt does not answer phone.
--- NOTE | 2021-11-09 10:29 | NUR ---
Received call from Juan C. He is agitated and upset. He is attempting to reinstate his old phone and is unable to do so. He is very tired. Does not want to drive anywhere. [facility]ave information for food through [facility] and [place]. Pt ranting as [place] has not arrived. Discussed they will be there, he needs to give them some time. Pt stating he tore up his prescriptions as he does not believe in medication and it is his right. Pt encouraged to lie down and rest. He agrees to this.
== END 2021-11-08 16:15 | disposition home or self-care (01) | DRG 177 ==
LOC: ED 09:36 → CCU 12:17 → MS 11-06 05:50
PROVIDERS: ADMIT Internal Medicine; ATTEND Internal Medicine
PROC: 3E0333Z Introduction of Anti-inflammatory into Peripheral Vein, Percutaneous Approach (ICD-10-PCS; principal; 2021-10-24)
PROC: XW033E5 Introduction of Remdesivir Anti-infective into Peripheral Vein, Percutaneous Approach, New Technology Group 5 (ICD-10-PCS; 2021-10-24)
PROC: 8E0ZXY6 Isolation (ICD-10-PCS; 2021-10-24)
PROC: 5A0955A Assistance with Respiratory Ventilation, Greater than 96 Consecutive Hours, High Flow/Velocity Cannula (ICD-10-PCS; 2021-10-24)
DX: U07.1 COVID-19 (principal); J96.01 Acute respiratory failure with hypoxia; J12.82 Pneumonia due to coronavirus disease 2019; N17.9 Acute kidney failure, unspecified; E87.1 Hypo-osmolality and hyponatremia; D69.6 Thrombocytopenia, unspecified; Z88.8 Allergy status to other drugs, medicaments and biological substances; Z79.899 Other long term (current) drug therapy; E86.1 Hypovolemia
CPT/HCPCS: 71045; 80048; 80053; 82803; 83880; 85025; 85379; 86140; 93005; 93010; 94667; 94668; 94761; 94762; 94799; 99285-25; A9270; C9803; J1100; J1650; J7030; J7050; Q0177; U0003